=== PATIENT | female | born 2000 | race Caucasian/White ===

== ENCOUNTER 2023-10-17 21:15 | Emergency (ER) | payer OTHER ==
--- NOTE | 2023-10-17 21:31 | ED Physician Documentation ---
PD HPI OPHTHO - Stated complaint Stated Complaint: LT EYE SWOLLEN - Chief complaint Chief Complaint: Heent - History obtained from History obtained from: Patient (Otherwise healthy 23-year-old woman presents with evaluation of swelling of the left upper eyelid that started just about an hour ago. She just gotten out of the shower but was not doing anything out of her usual routine there. Her vision is unaffected.) PD PAST MEDICAL HISTORY - Past Medical History Past Medical History: No Cardiovascular: None Respiratory: None Neuro: None Endocrine/Autoimmune: None GI: None SOCIAL INSURANCE ADMINISTRATOR: None : None HEENT: None Psych: None Musculoskeletal: None Derm: None - Past Surgical History Past Surgical History: No - Allergies Allergies/Adverse Reactions: Allergies Allergy/AdvReac Type Severity Reaction Status Date / Time cat dander Allergy Respiratory Verified 10/17/23 21:31 Penicillins Allergy Rash Verified 10/17/23 21:31 - Social History Does the pt smoke?: No Smoking Status: Never smoker Does the pt drink ETOH?: No Does the pt have substance abuse?: No - Immunizations Immunizations are current?: Yes - POLST Patient has POLST: No PD ED PE NORMAL - Vitals Vital signs reviewed: Yes - General General: Alert and oriented X 3, No acute distress - HEENT HEENT: PERRL, EOMI, Other (Very mild swelling of the left upper eyelid. No stye, no redness, no infection.) - Neuro Neuro: Alert and oriented X 3, Normal speech Results - Vitals Vitals: Vital Signs - 24 hr 10/17/23 21:27 Temperature 36.9 C Heart Rate 71 Respiratory 18 Rate Blood Pressure 107/94 H O2 Saturation 100 Oxygen O2 Source Room air PD Medical Decision Making - ED course ED course: She is very mild painless acute swelling of the left upper eyelid. Probably a spontaneous angioedema. Does not appear like an infection. Close conservative care and return precautions were given but at this point I do not think any treatment is necessary. Departure - Departure Disposition: 01 Home, Self Care Clinical Impression: Swollen eyelid Qualifiers: Laterality: left Qualified Code(s): H02.846 - Edema of left eye, unspecified eyelid Condition: Good Record reviewed to determine appropriate education?: Yes Comments: As discussed, at this point this seems like a spontaneous mild angioedema of the left upper eyelid. It does not appear like an infection or anything serious. I think it is okay to go home and put an ice pack on it and return tomorrow if it is not improved, sooner if worse or if new symptoms develop. Forms: PCP List
[2023-10-17 21:45] VITALS: BP 107/91; O2SAT 98
== END 2023-10-17 21:43 | disposition home or self-care (01) ==
LOC: ED 21:15
DX: H02.844 Edema of left upper eyelid (principal)
CPT/HCPCS: 99282; 99283